=== PATIENT | female | born 1995 | race Caucasian/White ===

== ENCOUNTER 2018-12-03 12:38 | Emergency (ER) | payer BC ==
[~2018-12-03] VITALS: Ht 160 cm; Wt 66.0 kg
[2018-12-03] MEDS ORDERED: normal saline 1000ML IV soln IVB ONE ×2 (12:55→14:55)
[2018-12-03 13:14] LABS: BASOPHILS % (AUTO) 0.4 % (0-1); EOSINOPHILS # (AUTO) 0.1 X10'3 (0-0.9); EOSINOPHILS % (AUTO) 0.5 % (0-6); HEMATOCRIT 42.9 % (35.0-45.0); HEMOGLOBIN 14.6 g/dl (12.0-16.0); LYMPHOCYTES # (AUTO) 2.7 X10'3 (1.1-4.8); LYMPHOCYTES % (AUTO) 26.1 % (21-51); MEAN CORPUSCULAR HEMOGLOBIN 30.9 PG (27.0-31.0); MEAN PLATELET VOLUME 7.9 FL (7.4-10.4); MONOCYTES # (AUTO) 0.6 X10'3 (0-0.9); MONOCYTES % (AUTO) 5.9 % (2-12); NEUTROPHILS % (AUTO) 67.1 % (42-75); PLATELET COUNT 282 X10'3 (140-440); RED BLOOD COUNT 4.72 X10'6 (4.20-5.60); RED CELL DISTRIBUTION WIDTH 12.3 % (11.5-14.5); WHITE BLOOD COUNT 10.4 X10'3 (4.5-11.0)
[2018-12-03 13:28] LABS: ALANINE AMINOTRANSFERASE 21 U/L (12-78); ALBUMIN 4.5 G/DL (3.4-5.0); ALBUMIN/GLOBULIN RATIO 1.3 (1.1-1.5); ALKALINE PHOSPHATASE 63 IU/L (46-116); ANION GAP 12 (8-16); ASPARTATE AMINO TRANSFERASE 14 U/L (10-37); BILIRUBIN,TOTAL 0.8 MG/DL (0.1-1.0); BLOOD UREA NITROGEN 18 MG/DL (7-18); BUN/CREATININE RATIO 21.7 (6.6-38.0); CALCIUM 9.6 MG/DL (8.5-10.1); CHLORIDE 106 MMOL/L (99-107); CREATININE 0.83 MG/DL (0.40-0.90); GLUCOSE 67 MG/DL (70-104); POTASSIUM 3.7 MMOL/L (3.5-5.1); SODIUM 142 MMOL/L (135-145); TOTAL CARBON DIOXIDE 24.5 MMOL/L (24-32); TOTAL PROTEIN 7.9 G/DL (6.4-8.2); eGFR 86 ML/MIN
--- NOTE | 2018-12-03 13:28 | NUR ---
PT IV STARTED PT GETTING IV N.S ,INFUSING PER MD ORDERS.NO DISTRESS NOTED PT CO PAIN 12/09.MOTHER AT BEDSIDE.WILL CONT TO MONITOR.
--- NOTE | 2018-12-03 14:20 | NUR ---
JUICE GIVEN TO THE PT PT BLD SUGAR IS 67. INFORMED THAT WILL RECHECK THE BLD SUGAR.
--- NOTE | 2018-12-03 14:20 | NUR ---
LANE ATTENDANT IN ROOM TO FOR SCANNING.MOTHER AT BEDSIDE.
[2018-12-03] MEDS ORDERED: diphenhydrAMINE 50 mg/ml inj IV ONE (14:30)
[2018-12-03] MEDS ORDERED: ondansetron/PF 4mg/2ml inj IV ONE (14:30)
[2018-12-03] MEDS ORDERED: traMADol 50MG tablet PO ONE (14:30)
--- NOTE | 2018-12-03 14:36 | NUR ---
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
--- NOTE | 2018-12-03 14:38 | NUR ---
clarified with caity rocha about pt urine sample not collected as per caity rocha not to worry she can be discharged wthout urine sample .will follow the orders.
--- NOTE | 2018-12-03 14:55 | NUR ---
informe keiht carolina about pt that she is nauseaous and unable to drink whole juice just had 1/2 of it when pt will finish the juice will recheck the bld sugar.
[2018-12-03] MEDS ORDERED: ONDA4TAB6 PO (15:31)
--- NOTE | 2018-12-03 15:48 | NUR ---
pt [place] sugar checked its 78.
[2018-12-03 15:54] VITALS: BP 90/60
== END 2018-12-03 16:01 | disposition home or self-care (01) ==
LOC: ER 12:39
DX: N20.0 Calculus of kidney (principal); Z91.040 Latex allergy status; Z91.018 Allergy to other foods; Z91.048 Other nonmedicinal substance allergy status
CPT/HCPCS: 36415; 76775; 80053; 82948; 85025; 96374; 96375; 99284; J1200; J2405; J7030